=== PATIENT | female | born 1965 | race Caucasian/White ===

== ENCOUNTER 2018-10-24 19:37 | Emergency (ER) | payer SELFPAY ==
[~2018-10-24] VITALS: Ht 157.5 cm; Wt 85.4 kg
[2018-10-24 19:53] VITALS: BP 130/78
--- NOTE | 2018-10-24 19:53 | NUR ---
TO BED # 07 AMBULATORY , REPORT GIVEN TO VINH YAN
--- NOTE | 2018-10-24 20:14 | NUR ---
Dr. Ford evaluating patient at bedside.
[2018-10-24] MEDS ORDERED: ONDANSETRON 4 MG TAB PO ONE (20:20)
[2018-10-24] MEDS ORDERED: IBUPROFEN 600 MG TAB PO ONE (20:20)
--- NOTE | 2018-10-24 20:34 | NUR ---
PT TO ED WITH C/O HEADACHE WITH N/V X THIS MORNING. PT REPORTS N/V. DENIES ANY LIGHT SENSITIVTY. NO NEURO DEFECITS. ANSWERING QUESTIONS APPROPRIATLEY. PT PLACED INTO BED, PENDING MD ROWLEY.
[2018-10-24 21:17] VITALS: BP 129/81
== END 2018-10-24 21:17 | disposition home or self-care (01) ==
LOC: MED 19:37
DX: R51 Headache (principal); R11.2 Nausea with vomiting, unspecified; R42 Dizziness and giddiness; Z88.0 Allergy status to penicillin
CPT/HCPCS: 99283; Q0162